=== PATIENT | female | born 1975 | race Caucasian/White ===

== ENCOUNTER 2017-01-18 11:17 | Emergency (ER) | payer BC ==
[2017-01-18 11:26] VITALS: TEMP 98.3
[2017-01-18] MEDS ORDERED: ASPIRIN 81 MG CHEW PO STA (12:04)
[2017-01-18] MEDS ORDERED: SODIUM CHLORIDE 0.9% 1,000 ML IV ONE (12:04)
[2017-01-18] MEDS ORDERED: diphenhydrAMINE 50 MG/ML 1 ML VIAL IVP STA (12:04)
[2017-01-18] MEDS ORDERED: FAMOTIDINE 20 MG/2 ML VIAL IV STA (12:04)
[2017-01-18] MEDS ORDERED: MAG HYDROX/AL HYDROX/SIMETH 30 ML CUP PO STA (12:05)
[2017-01-18 12:51] LABS: Basophils # (A) 0.1 k/uL (0-0.2); Basophils % (A) 1 %; CH 30.9; CHCM 35.9; Eosinophils % (A) 1 %; HCT 39.4 % (34.0-46.0); HDW 2.56; HGB 13.8 gm/dL (11.4-16.0); Luc # (Auto) 0.15; Luc % (Auto) 2; Lymphocytes # (A) 1.4 k/uL (1.0-4.8); Lymphocytes % (A) 20 %; MCH 30.3 pg (25.0-35.0); MCV 86.4 fL (80.0-100.0); Monocytes # (A) 0.4 k/uL (0-1.0); Monocytes % (A) 5 %; Neutrophils % (A) 71 %; RBC 4.56 m/uL (3.80-5.40); RDW 12.1 % (11.5-15.5); WBC (Perox) 7.42
[2017-01-18 12:57] LABS: Appearance,Urine Clear (Clear); Bilirubin,Urine Negative (Negative); Glucose,Urine (UA) Negative (Negative); Ketones,Urine Negative (Negative); Leukocyte Esterase,Urine Trace (Negative); Nitrite,Urine Negative (Negative); Particle Count 1845; Protein,Urine Negative (Negative); RBC,Urine 2 /hpf (0-5); Specific Gravity,Urine 1.004 (1.001-1.035); Squamous Epithelial Cell,Urine 2 /hpf (0-4); UA Billing (MACRO vs. MICRO) MICRO; Urobilinogen,Urine <2.0 mg/dL (<2.0); WBC,Urine 4 /hpf (0-5)
--- NOTE | 2017-01-18 12:57 | ED ---
General Adult HPI - General Chief complaint: Allergic Reaction Stated complaint: allergic reaction, bp Source: patient Mode of arrival: ambulatory Limitations: no limitations - History of Present Illness Initial comments: Patient is a 41-year-old female who presents for evaluation for possible ALLERGIC reaction. Past medical history as below. Patient stated that she was at work and she developed a headache. Her face became "beet red". 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 She went to an urgent care. She was given Toradol, "a steroid "and something "for her nausea". She does not remember the names of these medications. After which, she developed a migraine-like headache but not as severe as she's had in the past. She states that her throat feels like it is closing up. She also states that her face on both sides feels numb and that her legs feel numb. She's never had symptoms like this before in the past. She stated that she had a dose of Flonase earlier today which she has had and tolerated in the past. She also took a multivitamin. No other known exposures. No changes in soap or detergents. No new clothing. During this episode, she states that she feels chest tightness, shortness of breath, nausea and her headache which is mainly in the front that feels like a migraine. She is no history of a DVT or pulmonary embolism. She had a maternal grandmother who had a heart attack at 64 years old. She does not feel much better after the interventions at the urgent care. She admits to chills, URI symptoms. She denies fevers, chest pain, palpitations, vomiting, abdominal pain, diarrhea, pain or burning with urination. - Related Data Home Medications Medication Instructions Recorded Confirmed Cyclobenzaprine [Flexeril] 10 mg PO DAILY PRN 01/18/17 01/18/17 Fluticasone Nasal [place] [Flonase 2 spr EA NOSTRIL DAILY PRN 01/18/17 01/18/17 Nasal [place]] [employer] 1 tab PO DAILY 01/18/17 01/18/17 Ibuprofen [Motrin] 800 mg PO TID PRN 01/18/17 01/18/17 traZODone HCL [Desyrel] 100 mg PO HS 03/14/17 03/14/17 Allergies Allergy/AdvReac Type Severity Reaction Status Date / Time No Known Allergies Allergy Verified 01/18/17 11:52 Review of Systems ROS Statement: Those systems with pertinent positive or pertinent negative responses have been documented in the HPI. ROS Other: All systems not noted in ROS Statement are negative. Past Medical History Past Medical History: No Reported History History of Any Multi-Drug Resistant Organisms: None Reported Past Surgical History: Section, Tonsillectomy, Tubal Ligation Past Psychological History: Anxiety, Depression Smoking Status: Never smoker Past Alcohol Use History: Occasional Past Drug Use History: None Reported General Exam Limitations: no limitations General appearance: alert, in no apparent distress, other (No acute distress. Resting comfortably in stretcher. On her cell phone.) Head exam: Present: atraumatic, normocephalic, normal inspection, other (Dry mucous membranes. Posterior oropharynx is slightly erythematous.) Eye exam: Present: normal appearance, PERRL, EOMI. Absent: scleral icterus, conjunctival injection, periorbital swelling ENT exam: Present: normal exam, mucous membranes moist, other (Bilateral tympanic membranes are clear. Some discomfort with palpation of her anterior cervical area. There are some lymph nodes that are enlarged.) Neck exam: Present: normal inspection. Absent: tenderness, meningismus, lymphadenopathy Respiratory exam: Present: normal lung sounds bilaterally, other (Clear bilaterally without wheezes rales or rhonchi. No conversational dyspnea. No hypoxia.). Absent: respiratory distress, wheezes, rales, rhonchi, stridor Cardiovascular Exam: Present: regular rate, normal rhythm, normal heart sounds, other (Normal S1 and S2. No murmurs. Distal pulses intact.). Absent: systolic murmur, diastolic murmur, rubs, gallop, clicks GI/Abdominal exam: Present: soft, normal bowel sounds, other (Abdomen is soft and nontender. No peritoneal signs.). Absent: distended, tenderness, guarding , rebound, rigid Extremities exam: Present: normal inspection, full ROM, normal capillary refill. Absent: tenderness, pedal edema, joint swelling, calf tenderness Back exam: Present: normal inspection Neurological exam: Present: alert, oriented X3, CN II-XII intact, normal gait, other (Cranial nerves II through XII grossly intact without focal neurological deficits. Moves all 4 charities. 5 out of 5 strength of the upper or lower extremities. Gait intact. No ataxia of the upper or lower extremities. Sensation intact in all 4 extremities. No facial droop. No slurring of speech. ) Psychiatric exam: Present: normal affect, normal mood Skin exam: Present: warm, dry, intact, normal color. Absent: rash Course Vital Signs 01/18/17 01/18/17 01/18/17 11:23 12:50 14:09 Temperature 98.3 F Pulse Rate 86 68 87 Respiratory 18 18 16 Rate Blood Pressure 170/94 167/88 143/88 O2 Sat by Pulse 98 99 97 Oximetry Medical Decision Making - Medical Decision Making Patient presents for evaluation for a constellation of symptoms. The most concerning to her are her headache, the sensation that her throat is closing up , chest tightness, nausea, tingling/numbness in her face and legs. She has a known history of migraines. Her NIH stroke scale is 0. Possibility that this could be an atypical ACS presentation vs atypical migraine. She has recently traveled to [facility] which is a long car ride. We will get a CT head , chest x-ray, EKG, cardiac workup with a d-dimer, migraine cocktail. 1248: Reviewed EKG. Normal sinus rhythm at 72. [place] 156. QRS 78. QTc 407. No ST changes. 1311: Laboratory studies as below. All of which are unremarkable. D-dimer negative. Still waiting for troponin. 1340: Trop negative. At CT. 1359: Reevaluated the patient. States that she feels a little bit better but is still having a mild headache. Also states that she feels that her throat is closing up. She is breathing comfortably at bedside. There is no carotid bruits bilaterally. She has nice smooth laminar airflow when she takes deep breaths when I auscultate the side of her neck. There is no crepitus to the side of her neck. Her tongue is not swollen. Her lips are not swollen. She does not have any hives over her face neck or rest of her body. Discussed with the patient that I am unsure at this time what may be causing her symptoms. Stated that I could perform a lumbar puncture to rule out subarachnoid hemorrhage of her headache is severe and is persistent. Patient refused. Offered more medications and further investigation into a constellation of symptoms but the patient stated that she would rather go home. She has a primary care physician that she can follow-up with. Encourage close follow-up with her primary care physician in the next 12-24 hours. Will return immediately if her symptoms change or worsen. Understands the risks and benefits and will be discharged home. - Lab Data Result diagrams: 01/18/17 12:35 01/18/17 12:35 Lab Results 01/18/17 01/18/17 01/18/17 Range/Units 12:35 12:35 12:35 WBC 7.0 (3.8-10.6) k/uL RBC 4.56 (3.80-5.40) m/uL Hgb 13.8 (11.4-16.0) gm/dL Hct 39.4 (34.0-46.0) % MCV 86.4 (80.0-100.0) fL MCH 30.3 (25.0-35.0) pg MCHC 35.0 (31.0-37.0) g/dL RDW 12.1 (11.5-15.5) % Plt Count 276 (150-450) k/uL Neutrophils % 71 % Lymphocytes % 20 % Monocytes % 5 % Eosinophils % 1 % Basophils % 1 % Neutrophils # 5.0 (1.3-7.7) k/uL Lymphocytes # 1.4 (1.0-4.8) k/uL Monocytes # 0.4 (0-1.0) k/uL Eosinophils # 0.0 (0-0.7) k/uL Basophils # 0.1 (0-0.2) k/uL D-Dimer 0.34 (<0.60) mg/L FEU Sodium 145 (137-145) mmol/L Potassium 3.8 (3.5-5.1) mmol/L Chloride 109 H (98-107) mmol/L Carbon Dioxide 25 (22-30) mmol/L Anion Gap 11 mmol/L BUN 8 (7-17) mg/dL Creatinine 0.62 (0.52-1.04) mg/dL Est GFR (MDRD) Af Amer >60 (>60 ml/min/1.73 sqM) Est GFR (MDRD) Non-Af >60 (>60 ml/min/1.73 sqM) Glucose 93 (74-99) mg/dL Calcium 9.8 (8.4-10.2) mg/dL Total Bilirubin 0.7 (0.2-1.3) mg/dL AST 20 (14-36) U/L ALT 39 (9-52) U/L Alkaline Phosphatase 56 (38-126) U/L Troponin I (0.000-0.034) ng/mL Total Protein 7.5 (6.3-8.2) g/dL Albumin 4.6 (3.5-5.0) g/dL Urine Color Urine Appearance (Clear) Urine pH (5.0-8.0) Ur Specific [place] (1.001-1.035) Urine Protein (Negative) Urine Glucose (UA) (Negative) Urine Ketones (Negative) Urine Blood (Negative) Urine Nitrate (Negative) Urine Bilirubin (Negative) Urine Urobilinogen (<2.0) mg/dL Ur Leukocyte Esterase (Negative) Urine RBC (0-5) /hpf Urine WBC (0-5) /hpf Ur Squamous Epith Cells (0-4) /hpf Urine HCG, Qual (Not Detectd) 01/18/17 01/18/17 01/18/17 Range/Units 12:35 12:35 12:35 WBC (3.8-10.6) k/uL RBC (3.80-5.40) m/uL Hgb (11.4-16.0) gm/dL Hct (34.0-46.0) % MCV (80.0-100.0) fL MCH (25.0-35.0) pg MCHC (31.0-37.0) g/dL RDW (11.5-15.5) % Plt Count (150-450) k/uL Neutrophils % % Lymphocytes % % Monocytes % % Eosinophils % % Basophils % % Neutrophils # (1.3-7.7) k/uL Lymphocytes # (1.0-4.8) k/uL Monocytes # (0-1.0) k/uL Eosinophils # (0-0.7) k/uL Basophils # (0-0.2) k/uL D-Dimer (<0.60) mg/L FEU Sodium (137-145) mmol/L Potassium (3.5-5.1) mmol/L Chloride (98-107) mmol/L Carbon Dioxide (22-30) mmol/L Anion Gap mmol/L BUN (7-17) mg/dL Creatinine (0.52-1.04) mg/dL Est GFR (MDRD) Af Amer (>60 ml/min/1.73 sqM) Est GFR (MDRD) Non-Af (>60 ml/min/1.73 sqM) Glucose (74-99) mg/dL Calcium (8.4-10.2) mg/dL Total Bilirubin (0.2-1.3) mg/dL AST (14-36) U/L ALT (9-52) U/L Alkaline Phosphatase (38-126) U/L Troponin I <0.012 (0.000-0.034) ng/mL Total Protein (6.3-8.2) g/dL Albumin (3.5-5.0) g/dL Urine Color Light Yellow Urine Appearance Clear (Clear) Urine pH 7.0 (5.0-8.0) Ur Specific [place] 1.004 (1.001-1.035) Urine Protein Negative (Negative) Urine Glucose (UA) Negative (Negative) Urine Ketones Negative (Negative) Urine Blood Trace H (Negative) Urine Nitrate Negative (Negative) Urine Bilirubin Negative (Negative) Urine Urobilinogen <2.0 (<2.0) mg/dL Ur Leukocyte Esterase Trace H (Negative) Urine RBC 2 (0-5) /hpf Urine WBC 4 (0-5) /hpf Ur Squamous Epith Cells 2 (0-4) /hpf Urine HCG, Qual Not Detected (Not Detectd) Disposition Clinical Impression: Headache, Dyspnea, Nausea Disposition: HOME SELF-CARE Condition: Fair Instructions: Migraine Headache (ED), Anaphylaxis (ED) Referrals: Terri Marie MD [Primary Care Provider] - 1-2 days
[2017-01-18 12:58] LABS: ALT 39 U/L (9-52); AST 20 U/L (14-36); Alkaline Phosphatase 56 U/L (38-126); Anion Gap 11 mmol/L; Blood Urea Nitrogen 8 mg/dL (7-17); Calcium 9.8 mg/dL (8.4-10.2); Carbon Dioxide 25 mmol/L (22-30); Chloride 109 mmol/L (98-107); Glucose 93 mg/dL (74-99); Non-African American GFR(MDRD) >60 (>60 ml/min/1.73 sqM); Potassium 3.8 mmol/L (3.5-5.1); Sodium 145 mmol/L (137-145); Total Bilirubin 0.7 mg/dL (0.2-1.3); Total Protein 7.5 g/dL (6.3-8.2)
--- NOTE | 2017-01-18 13:55 | CT ---
EXAMINATION TYPE: CT brain wo con DATE OF EXAM: 01/18/2017 1:48 PM COMPARISON: NONE INDICATION: SNEED DLP: 1091 mGycm, Automated exposure control for dose reduction was used. CONTRAST: None CT of the brain is performed utilizing 3 mm thick sections through the posterior fossa and 3 mm thick sections through the remaining calvarium. Study is performed within 24 hours of arrival to the hosp [facility]. No abnormal hyperdensity is present to suggest an acute intracranial hemorrhage. No mass lesion is evident. No acute infarcts are evident. Ventricles and sulci are appropriate for the patient age. Paranasal sinuses and mastoid air cells within the [id number] are clear. IMPRESSIONS: 1. Normal CT Brain
[2017-01-18 14:11] VITALS: BP 143/88; PULSE 87; RESP 16
--- NOTE | 2017-02-15 13:16 | XR ---
EXAMINATION TYPE: XR chest 1V DATE OF EXAM: 01/18/2017 12:07 PM COMPARISON: NONE INDICATION: Pain, hypertension TECHNIQUE: Single frontal view of the chest is obtained. FINDINGS: The heart size is normal. The pulmonary vasculature is normal. The lungs are clear. IMPRESSION: 1. No acute pulmonary process.
== END 2017-01-18 14:10 | disposition home or self-care (01) ==
LOC: EC 11:17
DX: T78.2XXA Anaphylactic shock, unspecified, initial encounter (principal); R51 Headache; R11.0 Nausea; R06.02 Shortness of breath; F41.9 Anxiety disorder, unspecified; F32.9 Major depressive disorder, single episode, unspecified; Z79.899 Other long term (current) drug therapy
CPT/HCPCS: 36415; 93005; 85379; 80053; 84484; 85025; 81001; 81025; 71010; 70450; 99284; 96374; 96375; 96361; J1200